=== PATIENT | male | born 1990 | race Asian ===

== ENCOUNTER 2018-12-13 19:45 | Emergency (ER) | payer OTHER ==
[~2018-12-13] VITALS: Ht 167.6 cm; Wt 76.0 kg
[2018-12-13 19:50] VITALS: Ht 167.6 cm; Wt 76.0 kg
--- NOTE | 2018-12-13 23:56 | ERD ---
ER Documentation Chief Complaint Chief Complaint need insulin pen refill; no symptoms HPI 28-year-old male with past medical history of diabetes mellitus type 1 who presents with no acute medical complaints. Patient states recently changed his insurance to [facility] and is unable to obtain his insulin as his insurance does not cover his current regimen ROS All systems reviewed and are negative except as per history of present illness. Medications Home Meds Active Scripts Insulin Glargine* (Lantus*) 100 Unit/Ml Soln, 35 UNIT SC QHS for 30 Days, #1 VIAL Prov:MARILEE SQUIRES PA-C 12/14/18 Insulin Aspart* (Novolog Insulin Pen*) 100 Unit/Ml Soln, 10-20 UNIT SC TIDM A for 30 Days, EA Prov:MARILEE SQUIRES PA-C 12/14/18 PMhx/Soc Medical and Surgical Hx: pt denies Surgical Hx Hx Miscellaneous Medical Probl: Yes (DM) Hx Alcohol Use: No Hx Substance Use: No Hx Tobacco Use: No Smoking Status: Never smoker FmHx Family History: No diabetes, No coronary disease, No other Physical Exam Vitals Vital Signs Date Temp Pulse Resp B/P (MAP) Pulse Ox O2 O2 Flow FiO2 Time Delivery Rate 12/14/18 98.6 75 18 144/91 99 Room Air 01:11 (108) 12/13/18 98.7 82 18 133/84 98 19:50 (100) Physical Exam Deferred Procedures/MDM 28-year-old male with DM1 who presents for insulin pen refill. He is without medical complaint. All appropriate scripts for his long-acting as well as short-acting insulin sent to his pharmacy of choice. Patient advised to make appointment with her PMD and follow-up within 1-2 weeks for continued care. Departure Condition: Stable MARILEE SQUIRES PA-C Dec 13, 2018 23:56
[2018-12-14] MEDS ORDERED: LANT3I SC (00:39)
[2018-12-14] MEDS ORDERED: NOVO3I SC (00:39)
[2018-12-14 01:11] VITALS: BP 144/91; PULSE 75; RESP 18
== END 2018-12-14 01:46 | disposition home or self-care (01) ==
LOC: FTE 19:45
DX: Z76.0 Encounter for issue of repeat prescription (principal); E10.9 Type 1 diabetes mellitus without complications; Z79.4 Long term (current) use of insulin
CPT/HCPCS: 99281